=== PATIENT | female | born 1980 | race Caucasian/White ===

== ENCOUNTER 2017-10-24 10:42 | Outpatient (CLI) | payer MEDICAID ==
[2017-10-24 11:30] LABS: BASOPHILS # (AUTO) 0.03 x10^3/uL (0-0.1); BASOPHILS % (AUTO) 0 % (0-1); EOSINOPHILS # (AUTO) 0.15 x10^3/uL (0-0.4); EOSINOPHILS % (AUTO) 1 % (1-7); LYMPHOCYTES # (AUTO) 1.78 x10^3/uL (1-3.4); LYMPHOCYTES % (AUTO) 17 % (22-44); MD NO; MEAN CORPUSCULAR HEMOGLOBIN 29.6 pg (27.0-34.8); MEAN CORPUSCULAR HGB CONC 33.5 g/dL (32.4-35.8); MEAN CORPUSCULAR VOLUME 88.3 fL (80-100); MEAN PLATELET VOLUME 8.5 fL (7.4-10.4); MONOCYTES % (AUTO) 6 % (2-9); NEUTROPHILS % (AUTO) 76 % (42-75); PLATELET COUNT 249 x10^3/uL (130-400); RED BLOOD COUNT 3.73 x10^6/uL (3.82-5.3)
[2017-10-24 12:21] LABS: MICROSCOPIC INDICATED
== END 2017-10-24 13:00 | disposition home or self-care (01) ==
LOC: LDOP 10:42
PROVIDERS: ATTEND Obstetrics & Gynecology
DX: O26.893 Other specified pregnancy related conditions, third trimester (principal); O23.03 Infections of kidney in pregnancy, third trimester; O26.833 Pregnancy related renal disease, third trimester; N20.0 Calculus of kidney; N13.30 Unspecified hydronephrosis; Z3A.00 Weeks of gestation of pregnancy not specified
CPT/HCPCS: 36415; 59025; 76770; 81001; 85025; 87086; 99201; P9612; G0463

== ENCOUNTER 2019-06-18 16:58 | Outpatient (CLI) | payer MEDICAID ==
[~2019-06-18] VITALS: Ht 157.5 cm; Wt 67.2 kg
[~2019-06-18 16:58] MED LIST: FERR325T5 PO; IBUP-1222 PO; OMEP20TA62 PO; PREN1TAB60 PO
[2019-06-18] MEDS ORDERED: IRON SUCROSE COMPLEX 100MG/5ML IV STA (17:03)
[2019-06-18 17:06] VITALS: BP 108/65
[2019-06-18] MEDS ORDERED: SODIUM CHLORIDE FLUSH 10ML SYR IVF SCH (21:00)
[2019-06-22] MEDS ORDERED: FLUO20CA19 PO (17:39)
[2019-06-22] MEDS ORDERED: OMEP-110 PO (17:39)
== END 2019-06-18 17:48 | disposition home or self-care (01) ==
LOC: LDOP 16:58
PROVIDERS: ATTEND Obstetrics & Gynecology
DX: O99.013 Anemia complicating pregnancy, third trimester (principal); D50.9 Iron deficiency anemia, unspecified; Z3A.30 30 weeks gestation of pregnancy
CPT/HCPCS: 59025; 96374; 99211; J1756; 96360; 96372; G0463

== ENCOUNTER 2019-08-09 05:03 | Inpatient (IN) | payer MEDICAID ==
[~2019-08-09] VITALS: Ht 157.5 cm; Wt 69.5 kg
[~2019-08-09 05:03] MED LIST changes: +FLUO20CA19 PO; +OMEP-110 PO
[2019-08-09] MEDS ORDERED: OXYTOCIN 30U/ 0.9% NaCL 500ML 500 ML IV PRN (05:11)
[2019-08-09] MEDS ORDERED: D5%-LACTATED RINGERS 1,000 ML IV SCH (05:11)
[2019-08-09] MEDS ORDERED: OXYTOCIN 30U/ 0.9% NaCL 500ML 500 ML IV ONE (05:11)
[2019-08-09 05:18] VITALS: BP 130/87
[2019-08-09] MEDS ORDERED: PENICILLIN GK 5,000,000 UNITS in DEXTROSE 5% 100 ML IVPB ONE (05:30)
[2019-08-09] MEDS ORDERED: TERBUTALINE 1 MG/ML, 1ML SQ PRN (05:30)
[2019-08-09] MEDS ORDERED: ONDANSETRON 2MG/ML, 2ML IVPush PRN ×2 (05:30→11:30)
[2019-08-09] MEDS ORDERED: TERBUTALINE 1 MG/ML, 1ML IVPush PRN (05:30)
[2019-08-09] MEDS ORDERED: FENTANYL PF 100 MCG/2ML IVPush PRN (05:30)
[2019-08-09] MEDS ORDERED: FENTANYL PF 100 MCG/2ML IV PRN (05:30)
[2019-08-09] MEDS: LACTATED RINGERS 1,000 ML IV SCH ×4 (05:47→22:38)
[2019-08-09] MEDS ORDERED: MISOPROSTOL 200 MCG TABLET ONE (05:48)
[2019-08-09] MEDS ORDERED: NEWBORN KIT ONE (05:48)
[2019-08-09] MEDS ORDERED: LIDOCAINE 1%, 20ML ONE (05:48)
[2019-08-09] MEDS ORDERED: OXYTOCIN 30U/ 0.9% NaCL 500ML 500 ML ONE (05:48)
[2019-08-09 05:49] LABS: MEAN CORPUSCULAR HEMOGLOBIN 26.6 pg (27.0-34.8); MEAN CORPUSCULAR HGB CONC 32.2 g/dL (32.4-35.8); MEAN CORPUSCULAR VOLUME 82.6 fL (80-100); MEAN PLATELET VOLUME 8.5 fL (7.4-10.4); PLATELET COUNT 252 x10^3/uL (130-400); RED BLOOD COUNT 3.72 x10^6/uL (3.82-5.3); RED CELL DISTRIBUTION WIDTH 26.5 % (9.6-15.2)
[2019-08-09 06:11] LABS: BASOPHILS # (AUTO) 0.05 x10^3/uL (0-0.1); BASOPHILS % (AUTO) 1 % (0-1); EOSINOPHILS # (AUTO) 0.16 x10^3/uL (0-0.4); EOSINOPHILS % (AUTO) 2 % (1-7); LYMPHOCYTES % (AUTO) 21 % (22-44); MD SCAN; MONOCYTES # (AUTO) 0.71 x10^3/uL (0.2-0.8); MONOCYTES % (AUTO) 8 % (2-9); NEUTROPHILS % (AUTO) 68 % (42-75)
[2019-08-09] MEDS ORDERED: FENTANYL/BUPIV./NS/PF 250 ML EPIDCONT SCH ×2 (06:26→11:02)
[2019-08-09] MEDS ORDERED: FENTANYL PF 500 MCG, BUPIVACAINE/PF 0.5%, 30ML 62.5 ML in SODIUM CHLORIDE 0.9% 177.5 ML EPIDCONT SCH (07:00)
[2019-08-09] MEDS ORDERED: BUPIVACAINE 0.25% ONE ×2 (09:48→21:27)
[2019-08-09] MEDS: PENICILLIN GK 2,500,000 UNITS in DEXTROSE 5% 100 ML IVPB SCH ×4 (10:02→22:36)
[2019-08-09] MEDS ORDERED: LACTATED RINGERS 1,000 ML IV SCH (11:02)
[2019-08-09] MEDS ORDERED: ONDANSETRON 2MG/ML, 2ML ONE ×2 (11:04→20:00)
[2019-08-09] MEDS ORDERED: NALOXONE 0.4 MG/ML, 1ML IVPush PRN (11:30)
[2019-08-09] MEDS ORDERED: EPHEDRINE 50 MG/ML, 1ML IVPush PRN (11:30)
[2019-08-09] MEDS ORDERED: DIPHENHYDRAMINE 50 MG/ML, 1ML IVPush PRN (11:30)
[2019-08-09] MEDS ORDERED: LACTATED RINGERS 1,000 ML IVBOLUS PRN (11:30)
[2019-08-09] MEDS ORDERED: ACETAMINOPHEN 325 MG TABLET ONE (12:18)
[2019-08-09] MEDS ORDERED: ACETAMINOPHEN 325 MG TABLET PO PRN (12:30)
[2019-08-09] MEDS ORDERED: FENTANYL PF 100 MCG/2ML ONE (21:27)
[2019-08-10] MEDS ORDERED: TRANEXAMIC ACID 100 MG/ML, 10ML ONE (01:18)
[2019-08-10] MEDS ORDERED: OXYTOCIN 30U/ 0.9% NaCL 500ML 500 ML ONE (01:43)
[2019-08-10] MEDS: OXYTOCIN 30U/ 0.9% NaCL 500ML 500 ML IV SCH ×2 (02:24→12:24)
[2019-08-10] MEDS ORDERED: RHOGAM FROM BLOOD BANK 1 NOTE EA IM/IV ONE (02:30)
[2019-08-10] MEDS ORDERED: BISACODYL 10 MG SUPP PR PRN (02:30)
[2019-08-10] MEDS ORDERED: MISOPROSTOL 200 MCG TABLET PR PRN (02:30)
[2019-08-10] MEDS ORDERED: OXYcodone/APAP 5/325MG TABLET PO PRN (02:30)
[2019-08-10] MEDS ORDERED: ACETAMINOPHEN 325 MG TABLET PO PRN (02:30)
[2019-08-10] MEDS ORDERED: ONDANSETRON 2MG/ML, 2ML IV PRN (02:30)
[2019-08-10] MEDS ORDERED: IBUPROFEN 800 MG TABLET ONE (03:04)
[2019-08-10] MEDS: IBUPROFEN 800 MG TABLET PO PRN ×3 (03:05→21:40)
[2019-08-10 04:15] VITALS: BP 130/88
[2019-08-10 05:30] VITALS: BP 124/84
[2019-08-10 07:39] VITALS: BP 132/89
[2019-08-10] MEDS: DOCUSATE 100 MG CAPSULE PO PRN ×2 (08:28→19:48)
[2019-08-10] MEDS: PRENATAL VIT/IRON/FA 1 EACH TABLET PO SCH (08:28)
[2019-08-10] MEDS: HYDROcodone/APAP 5/325 TABLET PO PRN ×3 (08:30→21:39)
[2019-08-10 10:36] LABS: MEAN CORPUSCULAR HEMOGLOBIN 26.9 pg (27.0-34.8); MEAN CORPUSCULAR HGB CONC 32.4 g/dL (32.4-35.8); MEAN PLATELET VOLUME 8.9 fL (7.4-10.4); PLATELET COUNT 245 x10^3/uL (130-400); RED BLOOD COUNT 3.47 x10^6/uL (3.82-5.3); RED CELL DISTRIBUTION WIDTH 26.1 % (9.6-15.2)
[2019-08-10 10:51] LABS: BASOPHILS # (AUTO) 0.08 x10^3/uL (0-0.1); BASOPHILS % (AUTO) 1 % (0-1); EOSINOPHILS # (AUTO) 0.03 x10^3/uL (0-0.4); EOSINOPHILS % (AUTO) 0 % (1-7); LYMPHOCYTES # (AUTO) 1.48 x10^3/uL (1-3.4); LYMPHOCYTES % (AUTO) 10 % (22-44); MD SCAN; MONOCYTES # (AUTO) 0.91 x10^3/uL (0.2-0.8); MONOCYTES % (AUTO) 6 % (2-9); NEUTROPHILS # (AUTO) 12.43 x10^3/uL (1.8-6.8); NEUTROPHILS % (AUTO) 83 % (42-75)
[2019-08-10 12:00] VITALS: BP 144/96
[2019-08-10 16:30] VITALS: BP 132/90
[2019-08-10 20:00] VITALS: BP 134/90
[2019-08-10] MEDS ORDERED: CALCIUM CARBONATE 500 MG TAB.CHEW PO PRN (20:00)
[2019-08-10] MEDS ORDERED: MEASLES,MUMPS&RUBELLA VACC/PF 0.5 ML SQ-VACC ONE ×2 (21:48→22:30)
[2019-08-11 00:27] VITALS: BP 109/72
[2019-08-11] MEDS: IBUPROFEN 800 MG TABLET PO PRN (06:53)
[2019-08-11] MEDS: HYDROcodone/APAP 5/325 TABLET PO PRN (06:54)
[2019-08-11 08:00] VITALS: BP 121/82
[2019-08-11] MEDS: PRENATAL VIT/IRON/FA 1 EACH TABLET PO SCH (10:03)
[2019-08-11] MEDS: DOCUSATE 100 MG CAPSULE PO PRN (10:03)
[2019-08-11] MEDS ORDERED: IBUP-1222 PO (11:56)
== END 2019-08-11 14:35 | disposition home or self-care (01) | DRG 807 ==
LOC: LDIP 05:03 → 2NW 08-10 04:04
PROVIDERS: ADMIT Obstetrics & Gynecology; ATTEND Obstetrics & Gynecology
PROC: 10E0XZZ Delivery of Products of Conception, External Approach (ICD-10-PCS; principal; 2019-08-10)
PROC: 3E0R3BZ Introduction of Anesthetic Agent into Spinal Canal, Percutaneous Approach (ICD-10-PCS; 2019-08-10)
PROC: 00HU33Z Insertion of Infusion Device into Spinal Canal, Percutaneous Approach (ICD-10-PCS; 2019-08-10)
DX: O36.63X0 Maternal care for excessive fetal growth, third trimester, not applicable or unspecified (principal); Z37.0 Single live birth; D50.9 Iron deficiency anemia, unspecified; O14.04 Mild to moderate pre-eclampsia, complicating childbirth; O69.1XX0 Labor and delivery complicated by cord around neck, with compression, not applicable or unspecified; O99.02 Anemia complicating childbirth; O99.824 Streptococcus B carrier state complicating childbirth; Z3A.37 37 weeks gestation of pregnancy
CPT/HCPCS: 36415; S0020; 82803; 85025; 86850; 86900; G0378; J2405; J2540; J3010; J2590; J7050; J7120